=== PATIENT | female | born 1975 | race Caucasian/White ===

== ENCOUNTER 2022-09-05 16:46 | Emergency (ER) | payer OTHER, SELFPAY ==
[2022-09-05 17:18] VITALS: BP 163/96; PULSE 88; RESP 16; TEMP 36.7; O2SAT 98
--- NOTE | 2022-09-05 18:07 | ED.SKABFB ---
HPI - Skin/Abscess/Foreign Bdy General Chief complaint: Skin/Abscess/Foreign Body Stated complaint: Rash Lt Shoulder Source: patient Mode of arrival: ambulatory Limitations: no limitations History of Present Illness HPI narrative: 47-year-old female presents to [facility] with complaints of 2 hours of swelling to her left shoulder region for the past 2 weeks. Patient reports that her mother expressed 1 area and noticed green-colored drainage coming from the area. Patient reports that she also has been applying rubbing alcohol to the area with little relief. Patient denies fever, body aches, chills, nausea, vomiting or diarrhea Onset (ago): week(s) (2) Relieving factors: none Exacerbating factors: none Treatments prior to arrival: attempted to drain pus at home Related Data Allergies Allergy/AdvReac Type Severity Reaction Status Date / Time morphine Allergy Intermediate Itching Verified 09/05/22 17:50 Review of Systems Constitutional: Constitutional: Denies chills, Denies fatigue, Denies fever(s) and Denies weakness ENT: Denies dizziness, Denies epistaxis and Denies nasal congestion Cardiovascular: Cardiovascular: Denies chest pain Respiratory: Respiratory: Denies cough, Denies dyspnea and Denies wheezing Gastrointestinal: Gastrointestinal: Denies diarrhea, Denies nausea and Denies vomiting Integumentary/Breasts: Skin/Breast: Denies pruritus, Reports erythema and Denies skin ulcer Comments: Areas of swelling to left shoulder Neurologic: Denies dizziness, Denies syncope and Denies headache(s) Allergic/Immunologic: Allergic/Immunologic: Denies throat swelling, Denies tongue swelling and Denies wheezing PMFSH Comments At time of signature, I agree with nursing past medical, surgical, social and family history. There is no relevant family history pertinent to the presenting complaint. Exam Const: General: healthy appearing and no acute distress Nutritional Appearance: well nourished Orientation/consciousness: patient oriented x3 Limitations: no limitations HENMT: Head: normal to inspection Eyes: Conjunctivae: conjunctivae normal Neck: Neck: normal visual inspection Resp: Effort & Inspection: normal respiratory effort and not labored Auscultation: clear to auscultation bilaterally, no crackles, no rales, no rhonchi and no wheezes Cardio: Rate: regular rate Rhythm: regular rhythm Heart sounds: no murmurs Skin: General skin exam: normal color Other: Two 1 cm erythematous areas of swelling noted to left shoulder --there is a white colored discoloration noted to middle of wound. There is no streaking erythema, purulent drainage, necrotic tissue noted. Area represents a Possible staph-like infection Neuro: General: patient oriented x3 Speech: normal speech Gait exam (Neuro): Normal gait present Psych: Affect: normal affect Attitude: cooperative Course Course Level of Care: Express Care Visit Vital Signs Vital signs: Vital Signs Temperature 36.7 C 09/05/22 17:18 Pulse Rate 88 09/05/22 17:18 Respiratory Rate 16 09/05/22 17:18 Blood Pressure 163/96 H 09/05/22 17:18 Pulse Oximetry 98 09/05/22 17:18 Oxygen Delivery Room Air 09/05/22 17:18 Temperature 36.7 C 09/05/22 17:18 Pulse Rate 88 09/05/22 17:18 Respiratory Rate 16 09/05/22 17:18 Blood Pressure 163/96 H 09/05/22 17:18 Pulse Oximetry 98 09/05/22 17:18 Oxygen Delivery Room Air 09/05/22 17:18 MDM - Skin/Abscess/Foreign Bdy MDM Narrative Medical decision making narrative: Instructed patient to apply ointment as prescribed and to take oral antibiotic. Instructed patient to avoid expressing the area. Instructed patient to proceed to the emergency room if symptoms worsen Differential Diagnosis Differential diagnosis: Likely viral exanthem, dermatophytosis and urticaria Critical Care Time Critical Care Time Critical Care Time: No Discharge Plan Discharge Clinical Impression: Abscess of skin o
[2022-09-05 18:59] VITALS: BP 163/105
== END 2022-09-05 18:32 | disposition home or self-care (01) ==
PROVIDERS: Emergency Provider Nurse Practitioner Family
DX: L02.414 Cutaneous abscess of left upper limb (principal)
CPT/HCPCS: 99213; G0463